=== PATIENT | male | born 1955 | race Caucasian/White ===

== ENCOUNTER 2017-02-05 08:34 | Emergency (ER) | payer BC ==
--- NOTE | ~2017-02-05 | CR142 ---
[facility] A Service of [facility] [place] RADIOLOGY TEXT RESULTS PATIENT: VIK PRADHAN LOCATION: SED : 53 UNIT #: [id number] AGE: [address]: Thiago Hooks MD SEX: M ORDER DR: [id number] [place] [id number] E MR#: [id number] Acc #: [id number] NAME: VIK PRADHAN : 1955 SEX: M STUDY DATE/TIME: 02/05/2017 8:38 UNIT: SED ROOM: STUDY DESCRIPTION: CR Hand Min 3 Views Rt Attending Physician: Thiago Hooks M.D. Ordering Physician: Thiago Hooks M.D. Primary Care Physician: Chester Barron M.D. MEDICAL IMAGING REPORT This report is preliminary unless electronic signature is present. EXAM Right hand HISTORY Pain and swelling over the dorsum of the hand after hitting it on a steel table 2 days ago. TECHNIQUE 3 views of the hand were obtained. FINDINGS 3 views of the hand show a small soft tissue calcification at the third MCP joint. It appears chronic and probably related to old trauma. No acute fractures are seen and no radiodense foreign bodies are noted. Joint spaces of the hand are preserved. IMPRESSION Chronic appearing ossification at the ventral aspect of the third MCP joint. No acute bony abnormalities are seen. Dictated by... Kirt Wasserman M.D. THIS IS AN ELECTRONICALLY VERIFIED REPORT Kirt Wasserman M.D. at 02/05/2017 4:28 PM Case TD: 02/05/2017 09:36 JOB #: [id number] MEDICAL IMAGING REPORT Page 1 of 1
[~2017-02-05 08:34] MED LIST: ASPIRIN81 M2 PO; ATORVASTATIN CA10 MG PO; DIABETES MED; LOSARTAN-HCTZ1 EAC2 PO; METFORMIN PO; VIBRAMYCIN100 M1 PO; ZYLOPRIM100 MG PO
== END 2017-02-05 09:17 | disposition home or self-care (01) ==
LOC: SED 08:34
DX: S60.221A Contusion of right hand, initial encounter (principal); I10 Essential (primary) hypertension; E11.9 Type 2 diabetes mellitus without complications; Z79.82 Long term (current) use of aspirin; Z79.899 Other long term (current) drug therapy; W22.8XXA Striking against or struck by other objects, initial encounter; Y92.009 Unspecified place in unspecified non-institutional (private) residence as the place of occurrence of the external cause
CPT/HCPCS: 73130; 99283